=== PATIENT | male | born 1970 | race Caucasian/White ===

== ENCOUNTER 2020-07-29 05:27 | Day surgery (SDC) | payer BC ==
[2020-07-25 13:32] LABS: ABSOLUTE BASOPHILS # (AUTO) 0.1 10^3/uL (0.0-0.2); ABSOLUTE EOSINOPHILS # (AUTO) 0.1 10^3/uL (0.0-0.6); ABSOLUTE LYMPHOCYTES (AUTO) 2.2 10^3/uL (0.5-4.7); ABSOLUTE MONOCYTES (AUTO) 0.6 10^3/uL (0.1-1.4); ABSOLUTE NEUT (AUTO) 6.3 10^3/uL (1.7-8.2); BASOPHILS % (AUTO) 0.6 % (0-2); EOSINOPHILS % (AUTO) 1.2 % (0-6); HEMOGLOBIN 15.8 g/dL (13.5-17.0); LYMPHOCYTES % (AUTO) 23.6 % (13-45); MEAN CORPUSCULAR HEMOGLOBIN 30.2 pg (27.0-33.4); MEAN CORPUSCULAR HGB CONC 35.1 g/dL (32.0-36.0); MEAN CORPUSCULAR VOLUME 86 fl (80-97); MONOCYTES % (AUTO) 6.8 % (3-13); PLATELET COUNT 207 10^3/uL (150-450); RED BLOOD COUNT 5.23 10^6/uL (4.35-5.55); SEGMENTED NEUTROPHILS % (AUTO) 67.8 % (42-78); TOTAL CELLS COUNTED % (AUTO) 100 %; WHITE BLOOD COUNT 9.3 10^3/uL (4.0-10.5)
[2020-07-25 13:41] LABS: INTERNATIONAL RATION (INR) 0.91; PROTHROMBIN TIME 12.5 SEC (11.4-15.4)
[2020-07-25 13:42] LABS: PARTIAL THROMBOPLASTIN TIME 30.9 SEC (23.5-35.8)
--- NOTE | 2020-07-25 15:28 | EKG REPORT ---
SEVERITY:- BORDERLINE ECG - SINUS RHYTHM LA ABNORMALITY NONSPECIFIC LATERAL ST-T CHANGES : Confirmed by: Topher Morgan MD 25-Jul-2020 15:28:35
[~2020-07-29 05:27] MED LIST: DOXYCYCLINE HYCLATE 100 MG in DEXTROSE 5%-WATER 250 ML IV PRN; LACTATED RINGERS 1000 ML IV PRN; LIDOCAINE 0.5% INJ-PF (5 MG/ML) 50 ML SDV SUBCUT PRN
[2020-07-29] MEDS ORDERED: FENTANYL CITRATE INJ/PF 100 MCG/2 ML AMPUL ONE (07:09)
[2020-07-29] MEDS ORDERED: DEXMEDETOMIDINE INJ 80 MCG/20 ML VIAL IV ONE (07:09)
[2020-07-29] MEDS ORDERED: PROPOFOL INJ 200 MG/20 ML VIAL IV ONE (07:09)
[2020-07-29] MEDS ORDERED: MIDAZOLAM 2 MG/2 ML INJ ONE (07:09)
[2020-07-29] MEDS ORDERED: SODIUM BICARBONATE 4.2% INJ (2.5 MEQ/5 ML) VIAL ONE (07:17)
[2020-07-29] MEDS ORDERED: LIDOCAINE 1%/EPINEPHRINE INJ 20 ML VIAL ONE (07:17)
[2020-07-29] MEDS ORDERED: POVIDONE-IODINE 5% OPH PREP SOLN 30 ML ONE (07:18)
[2020-07-29] MEDS ORDERED: DIPHENHYDRAMINE HCL 50 MG/ML VIAL IV PRN (08:43)
[2020-07-29] MEDS ORDERED: FENTANYL CITRATE INJ/PF 100 MCG/2 ML AMPUL IV PRN (08:43)
--- NOTE | 2020-07-29 09:24 | Operative Report ---
Operative Report DATE OF SURGERY: 07/29/20 PREOPERATIVE DIAGNOSIS: Suspected basal cell carcinoma of the left lower eyelid POSTOPERATIVE DIAGNOSIS: Basal cell carcinoma of the left lower eyelid OPERATION: Excision of basal cell carcinoma from the left lower eyelid with fr ozen section margin control and reconstruction with a lisa-H advancement flap reconstruction SURGEON: TIMOTHY CASTRO ANESTHESIA: LMAC TISSUE REMOVED OR ALTERED: Basal cell carcinoma COMPLICATIONS: None PROCEDURE: Patient seen and was marked prior to being brought into the operating room. Patient was brought into the operating room and placed on the operating room table in a supine position. Patient was then prepped with a Betadine scrub and Betadine solution and draped in a sterile and aseptic manner. The area was then marked. 12 O'clock was marked towards the nose 3 O'clock was marked towards the lower eyelid 6:00 was marked towards the christian 9:00 was marked towards the mandible The area was then anesthetized with 1% lidocaine with epinephrine and bicarbonate for its anesthetic and hemostatic effects. The area was then excised and marked at 12:00. The specimen was sent for frozen section. The results came back that the deep and lateral margins were free. We had considered a primary closure but this would go against the natural relaxed skin tension lines. A primary closure would be too tight and would have increased chance of dehiscence. This will leave more of a scar so we decided to use a lisa-H advancement flap reconstruction which would camouflage the scar better and take tension off of the closure so that would be less chances of complications. It was felt that by using this flap this would allow us to bring skin from the lateral cheek into the area of the defect. This will also allow us to maintain vertical height of the lower eyelid. This would also allow us to maintain the tear trough. This would give him the least amount of vertical scar and cause the least amount of distortion and given the best cosmetic effect. Then we went ahead and outlined the flap and anesthetized it. We then incised the flap and developed a flap maintaining the subdermal plexus. Then we undermined 360 to allow for plate like scarring and minimize trap door deformity. Throughout the case hemostasis was achieved with the bipolar. We then sutured the flap into its new position using 5-0 Vicryl for the subcutaneous and deep dermis. Skin was closed with a interrupted stitch using 5-0 Prolene with knots being ti ed on the outside. We then applied tincture benzoin and Steri-Strips followed by a light pressure dressing. Patient was then reversed from anesthesia and taken to the [facility] for recovery. The patient tolerated well. There were no complications. Lesion size was approximately 1.5 cm please see pathology for actual size. Portions of this note may be dictated using [employer] voice recognition software. Occasional variations and spelling and vocabulary could be possible and are unintentional. Additionally, there is a chance that some errors may not be caught or corrected. Please notify the author of any discrepancies noted or if any statements are unclear. Subjective: No complaints Objective: Vital signs stable afebrile No bleeding Dressing intact Assessment and plan: Doing well. Elevate the operative site. Resume medications. Take antibiotics for 1 day Follow-up Full instructions were given to the patient and family and they understand Portions of this note may be dictated using [employer] voice recognition software. Occasional variations and spelling and vocabulary could be possible and are unintentional. Additionally, there is a chance that some errors may not be caught or corrected. Please notify the offer of any discrepancies noted or if any statements are unclear.
--- NOTE | 2020-07-29 09:27 | Discharge Summary ---
Discharge Summary (SDC) - Discharge Final Diagnosis: Basal cell carcinoma of the left lower eyelid Date of Surgery: 07/29/20 Condition: Good Treatment or Instructions: Leave the top dressing on for 2 days, then removed. Leave the steri-strip tapes on for 5 days, then removal. Then cleaning wound with peroxide and apply bacitracin 3 times per day. Antibiotics for 1 day, then discontinue. Elevate operative area to decrease swelling. Do not strain, or lift heavy objects. Call for excessive bleeding, increased temperature of 101, uncontrolled pain, or excessive nausea or vomiting. You may reach Dr. Kiran through his office at [phone]. In the event of an emergency after hours, then contact Dr. Kiran through [facility]. Return to the office for a postop check on . The time will be scheduled by the nursing staff of [facility] prior to discharge. Please give the patient a copy of their labs and EKG so they can bring this to their PMD. Thank you Portions of this note may be dictated using [employer] voice recognition software. Occasional variations and spelling and vocabulary could be possible and are unintentional. Additionally, there is a chance that some errors may not be caught or corrected. Please notify the offer of any discrepancies noted or if any statements are unclear. Referrals: SINCERE BLACK NP [Primary Care Provider] - Discharge Diet: As Tolerated Discharge Activity: No Lifting/Push/Pulling Report the Following to Your Physician Immediately: Unusual Bleeding - Keep head elevated. No bending or straining. Take top dressing off in 2 days. Leave the Steri-Strips in place for 5 days. If they get contaminated sooner than remove them sooner. It is okay to leave them on until I see you on Tuesday. However if they are dirty or contaminated then it is time to remove them. After removing the Steri-Strips clean with peroxide and apply bacitracin. Take antibiotics today and tomorrow then stop. Resume any medications that you had stopped for the surgery starting tomorrow.
[2020-07-29 11:33] VITALS: BP 118/61
== END 2020-07-29 10:55 | disposition home or self-care (01) ==
LOC: OROUT 05:27
PROVIDERS: ATTEND Plastic Surgery
DX: C44.1992 Other specified malignant neoplasm of skin of left lower eyelid, including canthus (principal); C44.509 Unspecified malignant neoplasm of skin of other part of trunk; I10 Essential (primary) hypertension; F17.210 Nicotine dependence, cigarettes, uncomplicated; Z03.818 Encounter for observation for suspected exposure to other biological agents ruled out; Z79.899 Other long term (current) drug therapy; Z79.84 Long term (current) use of oral hypoglycemic drugs; Z88.1 Allergy status to other antibiotic agents
CPT/HCPCS: 93005; 36415; 85025; 85610; 85730; 88305 ×2; 88331 ×2; 93010; 00300; 14060; U0003; J2250; J3490 ×5; J3010; J7060; J2704; C9803; 300; 87635